=== PATIENT | female | born 1975 | race Caucasian/White ===

== ENCOUNTER 2016-08-07 13:05 | Emergency (ER) | payer OTHER ==
[2016-08-07 13:58] LABS: HEMOGLOBIN 13.6 gm/dl (12.3-15.3); RED BLOOD COUNT 4.98 M/UL (4.00-5.10); WHITE BLOOD COUNT 13.5 K/UL (4.5-11.0)
[2016-08-07 14:23] LABS: BUN/CREATININE RATIO 14 (0-10)
== END 2016-08-07 20:21 | disposition home or self-care (01) ==
LOC: ER1 13:05
PROVIDERS: Emergency Medicine
DX: R55 Syncope and collapse (principal); R07.9 Chest pain, unspecified; I10 Essential (primary) hypertension; E11.9 Type 2 diabetes mellitus without complications; F17.210 Nicotine dependence, cigarettes, uncomplicated; Z79.84 Long term (current) use of oral hypoglycemic drugs
CPT/HCPCS: 36415; 71020; 80053; 81001; 82550; 82553; 82962; 83690; 83874; 84484; 84703; 85025; 85379; 87086; 93005; 96360; 99285

== ENCOUNTER → 2016-08-14 | Outpatient (CLI) | payer OTHER | LOC: NM 08-09 10:00 → HEART 5 09:15 → NM 08-16 14:00 | DX: R07.9 Chest pain, unspecified (principal) | CPT/HCPCS: 78452; A9502; J2785 ==

== ENCOUNTER 2020-11-17 19:59 | Emergency (ER) | payer OTHER ==
[~2020-11-17 19:59] MED LIST: ABILIFY 2 MG TAB2 MG PO; ABILIFY2 MG PO; BACTRIM DS TAB1 EACH PO; BUSPIRONE HCL7.5 MG PO; CETIRIZINE HCL10 MG PO; DELSYM30 MG/5 ML PO; DESYREL 50 MG T50 MG PO; FLONASE 0.05% N16 GM; HYDROXYZINE HCL25 MG PO; IBUPROFEN600 MG PO; KEFLEX500 MG PO; LASIX20 MG PO; LISINOPRIL20 MG PO; METFORMIN HCL500 M2 PO; NAPROXEN250 MG PO; NAPROXEN500 MG PO; NORCO 5-325 TA1 EACH PO; PERCOCET 7.5-31 EACH PO; PRINIVIL20 MG PO; PROVERA10 MG PO; TOPAMAX50 MG PO; TRAZODONE HCL50 MG PO; VITAMIN D3125 MCG PO; ZOLOFT100 MG PO; ZOLOFT50 MG PO; ZYRTEC10 MG PO
[2020-11-17] MEDS ORDERED: LODINE CAP 300300 MG PO (23:32)
[2020-11-17] MEDS ORDERED: VENTOLIN HFA 66.7 GM INH (23:32)
[2020-11-17] MEDS ORDERED: PREDNISONE 50 M50 MG PO (23:32)
== END 2020-11-17 23:35 | disposition home or self-care (01) ==
LOC: ER1 19:59
DX: J06.9 Acute upper respiratory infection, unspecified (principal); E11.9 Type 2 diabetes mellitus without complications; I10 Essential (primary) hypertension; Z90.710 Acquired absence of both cervix and uterus; F17.210 Nicotine dependence, cigarettes, uncomplicated; Z20.822 Contact with and (suspected) exposure to COVID-19
CPT/HCPCS: 71045; 99283; U0002

== ENCOUNTER 2021-02-28 15:26 | Emergency (ER) | payer BC, OTHER ==
[~2021-02-28 15:26] MED LIST changes: +LODINE CAP 300300 MG PO; +PREDNISONE 50 M50 MG PO; +VENTOLIN HFA 66.7 GM INH
[2021-02-28 15:52] LABS: HEMOGLOBIN 15.7 gm/dl (12.3-15.3); RED BLOOD COUNT 5.35 M/UL (4.00-5.10); WHITE BLOOD COUNT 16.5 K/UL (4.5-11.0)
[2021-02-28 16:25] LABS: BUN/CREATININE RATIO 15 (0-10)
== END 2021-02-28 16:42 | disposition short-term general hospital (02) ==
LOC: ER1 15:26
PROVIDERS: Family Medicine
DX: I63.9 Cerebral infarction, unspecified (principal); E11.40 Type 2 diabetes mellitus with diabetic neuropathy, unspecified; Z20.822 Contact with and (suspected) exposure to COVID-19; E66.01 Morbid (severe) obesity due to excess calories; R29.714 NIHSS score 14; F41.9 Anxiety disorder, unspecified; Z79.899 Other long term (current) drug therapy
CPT/HCPCS: 70450; 80053; 82550; 82553; 83735; 83874; 84484; 85025; 93005; 96374; 99285; J2997; U0002

== ENCOUNTER → 2021-04-24 | Outpatient (CLI) | payer BC, OTHER | LOC: SLEEP 21:30 | DX: G47.33 Obstructive sleep apnea (adult) (pediatric) (principal) | CPT/HCPCS: 95810 ==

== ENCOUNTER → 2021-06-05 | Outpatient (CLI) | payer OTHER | LOC: MAMO 07-19 09:00 | DX: Z12.31 Encounter for screening mammogram for malignant neoplasm of breast (principal) | CPT/HCPCS: 77063; 77067 ==

== ENCOUNTER → 2021-07-11 | Outpatient (CLI) | payer BC, OTHER | LOC: MAMO 12:55 | DX: R92.8 Other abnormal and inconclusive findings on diagnostic imaging of breast (principal) | CPT/HCPCS: 76641-RT; 77065; G0279 ==

== ENCOUNTER 2021-10-02 19:58 | Emergency (ER) | payer OTHER ==
[~2021-10-02 19:58] MED LIST changes: +BUSPIRONE HCL15 MG PO; -BUSPIRONE HCL7.5 MG PO; +DRISDOL1250 MCG PO; -LISINOPRIL20 MG PO; +LISINOPRIL40 MG PO; -VITAMIN D3125 MCG PO
[2021-10-02 20:31] LABS: HEMOGLOBIN 15.4 gm/dl (12.3-15.3); RED BLOOD COUNT 5.27 M/UL (4.00-5.10); WHITE BLOOD COUNT 18.9 K/UL (4.5-11.0)
[2021-10-02 20:54] LABS: BUN/CREATININE RATIO 17 (0-10)
[2021-10-03] MEDS ORDERED: ZOFRAN 4 MG TAB4 MG PO (01:48)
[2021-10-03] MEDS ORDERED: NAPROXEN500 MG PO (01:48)
== END 2021-10-03 01:10 | disposition home or self-care (01) ==
LOC: ER1 19:58
PROVIDERS: Physician Assistant Medical
DX: N83.202 Unspecified ovarian cyst, left side (principal); F17.210 Nicotine dependence, cigarettes, uncomplicated; E11.9 Type 2 diabetes mellitus without complications; I10 Essential (primary) hypertension
CPT/HCPCS: 76830; 80053; 81001; 83605; 85025; 96374; 96375; 99284; J1885; J2270; J2405; Q9967

== ENCOUNTER 2021-10-05 22:27 | Inpatient (IN) | payer OTHER ==
[~2021-10-05] VITALS: Ht 172.7 cm; Wt 149.7 kg
[~2021-10-05 22:27] MED LIST changes: +ZOFRAN 4 MG TAB4 MG PO
[2021-10-05 23:54] LABS: HEMOGLOBIN 14.1 gm/dl (12.3-15.3); RED BLOOD COUNT 4.94 M/UL (4.00-5.10); WHITE BLOOD COUNT 26.1 K/UL (4.5-11.0)
[2021-10-06 00:25] LABS: BUN/CREATININE RATIO 33 (0-10)
--- NOTE | 2021-10-06 09:52 | NUR ---
ADMISSION DONE BY Rosalinda Ramirez RN
[2021-10-06] MEDS ORDERED: HYDROCODON-ACE1 EAC4 PO (10:49)
[2021-10-06] MEDS ORDERED: PROZAC40 MG PO (10:50)
[2021-10-06] MEDS ORDERED: TRULICITY1.5 MG/0.5 SQ (10:50)
[2021-10-06] MEDS ORDERED: ONDANSETRON HCL4 MG PO (10:50)
[2021-10-06] MEDS ORDERED: CYCLOBENZAPRINE10 MG PO (10:51)
[2021-10-06] MEDS ORDERED: MELOXICAM15 MG PO (10:51)
[2021-10-06] MEDS ORDERED: AMLODIPINE BESY10 MG PO (10:51)
[2021-10-06] MEDS ORDERED: QUETIAPINE FUMA50 MG PO (10:51)
[2021-10-06] MEDS ORDERED: ATORVASTATIN CA10 MG PO (10:52)
[2021-10-06] MEDS ORDERED: AMITRIPTYLINE H25 MG PO (10:52)
[2021-10-06] MEDS ORDERED: GABAPENTIN400 MG PO ×2 (10:52)
[2021-10-06] MEDS ORDERED: GLIPIZIDE XL2.5 MG PO (10:52)
[2021-10-06] MEDS ORDERED: ASPIRIN EC81 MG PO (10:53)
--- NOTE | 2021-10-06 15:40 | NUR ---
spoken with nayely ronquillo portfolio management marketing ja and was informed that patient is ok and just to watch when giving her pain medicine and to space the medications. patient to cont her telemetry.
[2021-10-07 03:07] LABS: HEMOGLOBIN 12.4 gm/dl (12.3-15.3)
[2021-10-08] MEDS ORDERED: DOCUSATE SODIU100 MG PO (13:17)
[2021-10-08] MEDS ORDERED: PERCOCET 5/325 T1 EA PO (13:17)
== END 2021-10-08 14:55 | disposition home or self-care (01) | DRG 742 ==
LOC: ER1 22:27 → CDU 10-06 04:40 → M/S 10-06 08:04
PROVIDERS: Student in an Organized Health Care Education/Training Program; ADMIT Obstetrics & Gynecology
PROC: 0DNU0ZZ Release Omentum, Open Approach (ICD-10-PCS; 2021-10-06)
PROC: 0UT10ZZ Resection of Left Ovary, Open Approach (ICD-10-PCS; principal; 2021-10-06 12:16)
PROC: B24BZZZ Ultrasonography of Heart with Aorta (ICD-10-PCS; 2021-10-07)
DX: N83.202 Unspecified ovarian cyst, left side (principal); Z68.43 Body mass index [BMI] 50.0-59.9, adult; N73.6 Female pelvic peritoneal adhesions (postinfective); R00.1 Bradycardia, unspecified; I10 Essential (primary) hypertension; F17.210 Nicotine dependence, cigarettes, uncomplicated; T42.75XA Adverse effect of unspecified antiepileptic and sedative-hypnotic drugs, initial encounter; T41.45XA Adverse effect of unspecified anesthetic, initial encounter; E11.42 Type 2 diabetes mellitus with diabetic polyneuropathy; E66.01 Morbid (severe) obesity due to excess calories; G47.33 Obstructive sleep apnea (adult) (pediatric); M54.9 Dorsalgia, unspecified; F32.A Depression, unspecified; F41.9 Anxiety disorder, unspecified; Z90.710 Acquired absence of both cervix and uterus; Z90.49 Acquired absence of other specified parts of digestive tract; Z86.73 Personal history of transient ischemic attack (TIA), and cerebral infarction without residual deficits; Z79.4 Long term (current) use of insulin; Z98.51 Tubal ligation status; Z82.49 Family history of ischemic heart disease and other diseases of the circulatory system; Z83.3 Family history of diabetes mellitus
CPT/HCPCS: ECHO; 36415; 76830; 80053; 81001; 82947; 83690; 85014; 85018; 85025; 93005; 93306; 96365; 96368; 96375; 96376; 99285; J0690; J0696; J1170; J1650; J1885; J1956; J2250; J2270; J2405; J2704; J3010; Q9967